=== PATIENT | male | born 1985 | race Caucasian/White ===

== ENCOUNTER 2022-06-13 15:04 | Emergency (ER) | payer MEDICAID, SELFPAY ==
[2022-06-13 15:05] VITALS: BP 126/98; PULSE 85; RESP 18; TEMP 36.8; O2SAT 99; BMI 22.1
--- NOTE | 2022-06-13 15:45 | CT_ITS ---
PROCEDURE INFORMATION: Exam: CT Abdomen And Pelvis Without Contrast Exam date and time: 06/13/2022 3:54 PM Age: 36 years old Clinical indication: Abdominal pain; Flank; Right; Additional info: Abd pain TECHNIQUE: Imaging protocol: Computed tomography of the abdomen and pelvis without contrast. Radiation optimization: All CT scans at this facility use at least one of these dose optimization techniques: automated exposure control; mA and/or kV adjustment per patient size (includes targeted exams where dose is matched to clinical indication); or iterative reconstruction. COMPARISON: No relevant prior studies available. FINDINGS: Liver: Normal. No mass. Gallbladder and bile ducts: Normal. No calcified stones. No ductal dilation. Pancreas: Normal. No ductal dilation. Spleen: Normal. No splenomegaly. Adrenal glands: Normal. No mass. Kidneys and ureters: Normal. No hydronephrosis. Stomach and bowel: Unremarkable. No obstruction. No mucosal thickening. Appendix: No evidence of appendicitis. Intraperitoneal space: Unremarkable. No free air. No significant fluid collection. Vasculature: Unremarkable. No abdominal aortic aneurysm. Lymph nodes: Unremarkable. No enlarged lymph nodes. Urinary bladder: Unremarkable as visualized. Reproductive: Unremarkable as visualized. Bones/joints: Unremarkable. No acute fracture. Soft tissues: Unremarkable. IMPRESSION: No evidence of an acute abnormality.
--- NOTE | 2022-06-13 15:52 | PC.NURSE ---
PT TO CT AT THIS TIME
[2022-06-13 16:06] LABS: Basophils # 0.1 K/mm3 (0-0.2); Eosinophils # 0.2 K/mm3 (0.0-0.4); Eosinophils % 2.2 % (0.1-12.0); Hematocrit 49.4 % (42.0-52.0); Hemoglobin 16.6 g/dL (14.1-18.0); Lymphocytes # 2.1 K/mm3 (0.7-4.5); Lymphocytes % 32.6 % (10-50); Mean Corpuscular HGB Conc 33.6 g/dL (31.8-35.4); Mean Corpuscular Hemoglobin 30.4 pg (27.0-31.2); Mean Corpuscular Volume 90.3 fl (80-94); Mean Platelet Volume 7.9 fl (7.4-10.4); Monocytes # 0.6 K/mm3 (0.1-1.0); Neutrophils # 3.6 K/mm3 (1.8-7.8); Neutrophils % 55.1 % (37.0-80.0); Platelet Count 396 K/mm3 (142-424); Red Blood Count 5.47 M/mm3 (4.60-6.20); Red Cell Distribution Width 12.9 % (11.5-17.5); White Blood Count 6.5 K/mm3 (4.8-10.8)
[2022-06-13 16:07] LABS: Chloride 98 mmol/L (98-107); Potassium 3.9 mmoL/L (3.5-5.1); Sodium 140 mmol/L (136-145)
[2022-06-13 16:09] LABS: Blood Urea Nitrogen 11 mg/dl (9-20)
[2022-06-13 16:10] LABS: Alanine Aminotransferase 39 U/L (12-78); Albumin Level 4.7 g/dl (3.5-5.0); Albumin/Globulin Ratio 1.5 (1.1-1.8); Alkaline Phosphatase 67 U/L (38-126); Anion Gap 12.9 mEq/L (5-15); Aspartate Amino Transferase 36 U/L (17-59); Bilirubin,Total 0.7 mg/dl (0.2-1.3); Calcium 10.2 mg/dl (8.4-10.2); Carbon Dioxide 33 mmol/L (22.0-30.0); Creatinine Clearance Estimated 138 mL/min (50-200); Estimated Glomerular Filt Rate 109 ml/min (>60); GFR (African American) 132 ML/MIN (>60); Globulin 3.1 g/dL (1.3-3.2); Glucose 115 mg/dl (74-100); Total Protein,Serum 7.8 g/dl (6.3-8.2)
[2022-06-13 16:14] LABS: Microscopic, Urine URINE MICROSCOPIC (MICROSCOPIC)
--- NOTE | 2022-06-13 16:25 | PC.NURSE ---
DR. MONIQUE AT BEDSIDE
--- NOTE | 2022-06-13 16:35 | HMH.EDGENADL ---
Discharge Plan Disposition Patient Disposition: Home, Self-Care Condition: Good Referrals Follow up/Referrals: Provider,Referral, MD [Primary Care Provider] - See instructions Activity Restrictions/Add. Instructions Additional Instructions/Restrictions: You are being provided with a list of physicians available for follow-up of your condition. Please call a physician on this list to arrange a follow-up appointment as soon as possible. Follow-up with urology, Dr. Motley, for blood in your urine. Call for appointment [phone] Additional instructions for DENTAL PROBLEMS: See a dentist as soon as possible for further evaluation. Return immediately if you have an uncontrollable fever greater than 102 degrees, difficulty breathing or shortness of breath, persistent vomiting, or inability to swallow. Clinical Impressions Clinical Impression: Abdominal pain, Acute flank pain, Hematuria, Dental caries Instructions Patient Instructions: DI for Acute Abdominal Pain, DI for Hematuria, DI for Tooth Decay, DI for Flank Pain Discharge ED Provider: Bigg Ha General Adult HPI General Chief complaint: Abdominal Pain Stated complaint: stomach pains Time Seen by Provider: 06/13/22 16:27 Mode of Arrival: Ambulatory Limitations: No Limitations Description of Symptoms (Recalled from ER Triage Doc. by RN): PT REPORTS RIGHT SIDED ABDOMINAL PAIN SINCE TUESDAY, REPORTS PAIN INTERMITTENT. SHARP AND STABBING History of Present Illness HPI narrative: Patient states that he has 2 different complaints. Abdominal pain and broken tooth. States that he has intermittent right-sided abdominal pain that has been going on for years, most recently starting Tuesday. Says that his pain also goes to his right flank and he noticed some blood in his urine. Denies fever, vomiting. States that his stool never hardens up and he has been evaluated before with stool samples. This has been going on for years. States he has never had any other evaluation for his abdominal pain. Also states that he bit down on some chicken 2 days ago and broke off a piece of his tooth right mandibular area. No swelling or fever. He does not have a dentist. Reports prior history of substance abuse. Recently on buprenorphine. Related Data Allergies Allergy/AdvReac Type Severity Reaction Status Date / Time hydrocodone Allergy Verified 06/13/22 15:44 naloxone Allergy Verified 06/13/22 15:44 PFSH PFSH Social History Smoking Status: Current every day smoker ROS Obtained: Yes Systems reviewed as appropriate & no additional complaints except as documented Constitutional Constitutional: Denies fever(s), Denies headache(s) and Denies weakness ENT Ears, Nose, Mouth, and Throat: Reports otalgia, Denies headache(s), Denies nasal discharge and Denies sore throat Cardiovascular Cardiovascular: Denies chest pain Respiratory Respiratory: Denies shortness of breath and Denies cough Gastrointestinal Gastrointestingal: Reports abdominal pain; Denies constipation, diarrhea or vomiting Genitourinary Male Genitourinary: Denies difficulty urinating, Reports flank pain and Reports hematuria Musculoskeletal Musculoskeletal: Denies numbness Neurologic Neurologic: Denies headache(s), Denies numbness and Denies weakness Physical Exam General General appearance: alert and in no apparent distress Head Head exam: atraumatic and normocephalic Eye Eye exam: Present normal appearance and EOMI ENT ENT exam: Present mucous membranes moist Expanded ENT Exam Mouth exam: Present tongue normal; Absent lip swelling, tongue elevation or tongue swelling Teeth exam: Present dental caries, fractured tooth # and dental tenderness #; Absent gingival swelling Teeth numbered Image: 1. Fractured and Other (Fracture due to severe dental caries, no signs of infection.) Throat exam: Present normal inspection; Absent muffled voice Neck Neck exam: Present normal inspection
[2022-06-13 16:42] LABS: Lipase 87 U/L (23-300)
[2022-06-13 16:59] LABS: Appearance,Urine CLEAR (Clear); Bilirubin,Urine Negative (Negative); Blood, Urine 3+ (Negative); Color,Urine YELLOW (Yellow); Glucose,Urine (UA) Negative (Negative); Ketones,Urine Negative (Negative); Leukocyte Esterase,Urine Negative (Negative); Nitrate,Urine Negative (Negative); Protein,Urine Negative (Negative); Specific Gravity, Urine >= 1.030 (1.005-1.030); Urobilinogen,Urine 0.2 EU/dl (0.2)
--- NOTE | 2022-06-13 17:03 | PC.NURSE ---
PT REQUESTING SOMETHING TO EAT, OK'D PER MD DIETARY NOTIFIED
[2022-06-13 17:11] LABS: Amphetamine/Metha Screen,Urine Negative ng/ml (<1000); Barbiturates Screen,Urine Negative ng/ml (<200)
[2022-06-13 17:12] LABS: Benzodiazepines Screen,Urine Negative ng/ml (<200)
[2022-06-13 17:13] LABS: Cannabinoid Screen,Urine Positive ng/ml (<50); Cocaine Screen,Urine Negative ng/ml (<300)
[2022-06-13 17:14] LABS: Methadone Screen,Urine Negative ng/ml (<300); Squamous Epithelial Cell,Urine Occasional #/hpf (0-5); WBC,Urine Occasional #/hpf (0-3)
[2022-06-13 17:15] LABS: Opiate Screen,Urine Negative ng/ml (<300); Phencyclidine Screen,Urine Negative ng/ml (<25)
[2022-06-13 17:47] VITALS: BP 135/97; PULSE 67; RESP 18; TEMP 36.7; O2SAT 100
== END 2022-06-13 17:49 | disposition home or self-care (01) ==
PROVIDERS: Emergency Provider Emergency Medicine
DX: R10.31 Right lower quadrant pain (principal); H92.09 Otalgia, unspecified ear; S02.5XXA Fracture of tooth (traumatic), initial encounter for closed fracture; F17.210 Nicotine dependence, cigarettes, uncomplicated; Z88.5 Allergy status to narcotic agent; Z88.6 Allergy status to analgesic agent; Z88.8 Allergy status to other drugs, medicaments and biological substances
CPT/HCPCS: 74176; 80053; 80305; 81001; 83690; 85025; 99285

== ENCOUNTER 2022-09-07 01:33 | Emergency (ER) | payer MEDICAID, SELFPAY ==
--- NOTE | 2022-09-07 01:29 | ECG_ITS ---
APPROVED REPORT Exam: Resting ECG HR:93 bpm ECG Measurements Heart Rate 93 AXES MA 147 P 72 QRSd 102 QRS 68 QT 353 T 70 QTc 404 Conclusion SINUS RHYTHM NORMAL ECG UNCONFIRMED REPORT Electronically signed by : Jack Landis MD 09/07/2022 21:16:40
[2022-09-07 01:33] VITALS: BP 124/85; PULSE 89; RESP 16; TEMP 36.9; O2SAT 99; BMI 17.1
--- NOTE | 2022-09-07 01:39 | CT_ITS ---
PROCEDURE INFORMATION: Exam: CT Head Without Contrast Exam date and time: 09/07/2022 1:51 AM Age: 36 years old Clinical indication: Altered mental status/memory loss; Additional info: Overdose TECHNIQUE: Imaging protocol: Computed tomography of the head without contrast. Radiation optimization: All CT scans at this facility use at least one of these dose optimization techniques: automated exposure control; mA and/or kV adjustment per patient size (includes targeted exams where dose is matched to clinical indication); or iterative reconstruction. Other protocol: This patient has received [address] and 0 known cardiac nuclear medicine studies in the 12 months prior to the current study. COMPARISON: No relevant prior studies available. FINDINGS: Brain: No acute intracranial hemorrhage. No intra- or extra-axial fluid collection. No mass effect or midline shift. No loss of rudd-white matter differentiation. Calcifications in the basal ganglia, likely physiologic. Cerebral ventricles: No hydrocephalus. Paranasal sinuses: Trace layering fluid in the left maxillary sinus. Paranasal sinuses are otherwise clear. Mastoid air cells: Visualized mastoid air cells are well aerated. Bones/joints: No acute calvarial or skull base fracture. Soft tissues: Unremarkable. IMPRESSION: 1. No evidence of acute intracranial abnormality. 2. Trace layering fluid in the left maxillary sinus. Findings may represent sinusitis or blood products in the setting of trauma.
[2022-09-07 01:53] LABS: Basophils # 0.1 K/mm3 (0-0.2); Basophils % 1.8 % (0.1-2.0); Eosinophils # 0.1 K/mm3 (0.0-0.4); Eosinophils % 2.3 % (0.1-12.0); Hematocrit 47.6 % (42.0-52.0); Hemoglobin 16.2 g/dL (14.1-18.0); Lymphocytes % 47.9 % (10-50); Mean Corpuscular Hemoglobin 30.1 pg (27.0-31.2); Mean Corpuscular Volume 88.6 fl (80-94); Mean Platelet Volume 7.4 fl (7.4-10.4); Monocytes # 0.5 K/mm3 (0.1-1.0); Monocytes % 7.7 % (1.7-9.3); Neutrophils # 2.6 K/mm3 (1.8-7.8); Neutrophils % 40.3 % (37.0-80.0); Platelet Count 328 K/mm3 (142-424); Red Blood Count 5.37 M/mm3 (4.60-6.20); Red Cell Distribution Width 12.9 % (11.5-17.5); White Blood Count 6.4 K/mm3 (4.8-10.8)
[2022-09-07 01:59] LABS: Ethyl Alcohol 178 mg/dl (0-10)
[2022-09-07 02:00] LABS: Alanine Aminotransferase 25 U/L (12-78); Albumin Level 4.5 g/dl (3.5-5.0); Albumin/Globulin Ratio 1.5 (1.1-1.8); Alkaline Phosphatase 62 U/L (38-126); Anion Gap 10.7 mEq/L (5-15); Aspartate Amino Transferase 32 U/L (17-59); Bilirubin,Total 0.4 mg/dl (0.2-1.3); Blood Urea Nitrogen 11 mg/dl (9-20); Calcium 9.2 mg/dl (8.4-10.2); Carbon Dioxide 30 mmol/L (22.0-30.0); Chloride 107 mmol/L (98-107); Creatinine Clearance Estimated 85 mL/min (50-200); Estimated Glomerular Filt Rate 85 ml/min (>60); GFR (African American) 102 ML/MIN (>60); Glucose 86 mg/dl (74-100); Potassium 3.7 mmoL/L (3.5-5.1); Sodium 144 mmol/L (136-145); Total Protein,Serum 7.5 g/dl (6.3-8.2)
[2022-09-07 02:01] LABS: Acetaminophen < 10 ug/ml (10-30); Salicylate < 1.0 mg/dL (2.0-20.0)
[2022-09-07 02:15] VITALS: BP 0/0; PULSE 0; RESP 0; TEMP -17.7; TEMP 0; O2SAT 0
--- NOTE | 2022-09-07 02:16 | PC.NURSE ---
pt wanted to leave AMA and mother stated she would sign for him
--- NOTE | 2022-09-07 02:17 | HMH.EDOD ---
Discharge Plan Disposition Patient Disposition: Left Against Medical Advice Referrals Follow up/Referrals: Provider,Referral, MD [Primary Care Provider] - See instructions Clinical Impressions Clinical Impression: Drug overdose, Alcohol intoxication Instructions Patient Instructions: DI for Drug Overdose in Adults Discharge ED Provider: Charles (ED)Rasta Overdose HPI General Chief Complaint: Overdose Stated Complaint: ALTERED MENTAL Time Seen by Provider: 09/07/22 01:45 Mode of Arrival: EMS Source of Information: Patient, Parent(s), EMS and Medical Record Limitations: No Limitations Description of Symptoms (Recalled from ER Triage Doc. by RN): EMS called out for an unresponsive pt. upon ens arrival pt was awake and alert. pt states is doesnt remeber again since 8pm and states he have been drinking History of Present Illness HPI Narrative: pt with use of suboxone and etoh and nasal opiate - ems reports awake but confused at scene - no narcan given - pt poor historian complaint: accidental overdose Onset (ago): hour(s) Timing confirmed by: family member and other (ems ) Context: Accidental Overdose: wanted to get high Treatments Prior to Arrival: IV fluids Related Data Allergies Allergy/AdvReac Type Severity Reaction Status Date / Time hydrocodone Allergy Verified 06/13/22 15:44 naloxone Allergy Verified 06/13/22 15:44 [facility] Disclaimer: The information contained in this section may have been updated after the patient was seen, as this information can be updated by other users. Social History Smoking Status: Current every day smoker alcohol intake: current current occupational status: unemployed Travel in the last 8 weeks: None ROS Obtained: Yes unobtainable due to mental status Physical Exam General General appearance: alert Head Head exam: normocephalic Eye Eye exam: Present PERRL and EOMI ENT ENT exam: Present mucous membranes dry Neck Neck exam: Present trachea midline Respiratory Respiratory exam: Present normal lung sounds bilaterally; Absent respiratory distress Cardiovascular Cardiovascular exam: Present regular rate Abdominal Exam Abdominal exam: Present soft Extremities Exam Extremities exam: Absent calf tenderness Neurological Exam Neurological exam: Present alert and CN II-XII intact; Absent oriented X3 or motor sensory deficit Skin Skin exam: Absent rash Medical Decision Making Medical Records Medical records reviewed: Yes I reviewed the patient's medical records. Romie Inquiry Pt receiving controlled substance: No Vital Signs: 09/07/22 01:33 09/07/22 02:15 Temperature 98.4 F 0 F L Temperature Source Oral Pulse Rate 0 L Pulse Rate [Right] 89 Respiratory Rate 16 0 L Blood Pressure 0/0 L Blood Pressure [Right Arm] 124/85 Blood Pressure Mean [Right Arm] 98 02 Sat by Pulse Oximetry 99 Lab Data Lab results reviewed: Yes I reviewed the patient's lab results. Lab Results 09/07/22 01:44: WBC 6.4, RBC 5.37, Hgb 16.2, Hct 47.6, MCV 88.6, MCH 30.1, MCHC 34.0, RDW 12.9, Plt Count 328, MPV 7.4, Neut % (Auto) 40.3, Lymph % (Auto) 47.9, [place] % (Auto) 7.7, Eos % (Auto) 2.3, Baso % (Auto) 1.8, Neut # (Auto) 2.6, Lymph # (Auto) 3.0, [place] # (Auto) 0.5, Eos # (Auto) 0.1, Baso # (Auto) 0.1 09/07/22 01:44: Sodium 144, Potassium 3.7, Chloride 107, Carbon Dioxide 30, Anion Gap 10.7, BUN 11, Creatinine 1.00, Estimated Creat Clear 85, Estimated GFR 85, Est GFR ( Amer) 102, Glucose 86, Calcium 9.2, Total Bilirubin 0.4, AST 32, ALT 25, Alkaline Phosphatase 62, Total Protein 7.5, Albumin 4.5, Globulin 3.0, Albumin/Globulin Ratio 1.5, Salicylates < 1.0 L, Acetaminophen < 10 L 09/07/22 01:44: Plasma/Serum Alcohol 178 H Result diagrams: 09/07/22 01:44 09/07/22 01:44 Orders (Tests/Meds): ED MEDICATIONS Generic Name Dose Route Start Last Admin Trade Name Freq PRN Reason Stop Dose Admin Sodium Chloride 1,000 mls @ 999 ml
== END 2022-09-07 02:25 | disposition left against medical advice (07) ==
PROVIDERS: Emergency Provider Emergency Medicine
DX: T50.901A Poisoning by unspecified drugs, medicaments and biological substances, accidental (unintentional), initial encounter (principal); R41.82 Altered mental status, unspecified; F10.99 Alcohol use, unspecified with unspecified alcohol-induced disorder; X58.XXXA Exposure to other specified factors, initial encounter; F17.210 Nicotine dependence, cigarettes, uncomplicated
CPT/HCPCS: 70450; 80053; 80329; 85025; 93005; 96360; 99285

== ENCOUNTER 2023-12-19 19:34 | Emergency (ER) | payer MEDICAID, SELFPAY ==
[2023-12-19 19:34] VITALS: BP 118/84; PULSE 70; RESP 16; TEMP 36.9; O2SAT 97; BMI 23.7
--- NOTE | 2023-12-19 20:14 | ED_ITS ---
Discharge Plan Disposition Patient Disposition: Home, Self-Care Prescriptions Prescriptions: New sulfamethoxazole-trimethoprim [Bactrim DS] 800-160 mg tablet 1 tab PO BID 7 Days Qty: 14 0RF cephalexin 500 mg capsule 500 mg PO QID 7 Days Qty: 28 0RF Referrals Follow up/Referrals: Provider,Referral, [Primary Care Provider] - See instructions Activity Restrictions/Add. Instructions Additional Instructions/Restrictions: You have very small abscesses on tips of 2 finger with mild surrounding cellulitis abscesses were drained using a needle incision and antibiotics were prescribed for the redness/cellulitis of your finger. Please return with any significant worsening of your symptoms and complete your course of antibiotics even if he had complete resolution of your pain. Clinical Impressions Clinical Impression: Cellulitis of finger, Abscess of finger Instructions Patient Instructions: DI for Skin Abscess Discharge ED Provider: Hernando Humphrey General Adult HPI General Chief complaint: Skin/Abscess/Foreign Body Stated complaint: possible infection in fingers Time Seen by Provider: 12/19/23 20:04 Mode of Arrival: Ambulatory Source of Information: Patient Limitations: No Limitations Description of Symptoms (Recalled from ER Triage Doc. by RN): finger issues x1 week poss abcess, rash area in groin and butt, prostate gets hard when he pees History of Present Illness HPI narrative: Patient is a 38-year-old male presented with multiple complaints. Primarily he has some small pustules/abscesses on 2 of his fingers with some surrounding erythema. He did mention in triage a rash in his groin and buttock area and some issues with urination however when asked if he like me to evaluate this things he said he just wanted to be evaluated for his fingers and that is what brought him to the emergency department. No fevers chills etc. Related Data Previous Rx's Medication Instructions Recorded cephalexin 500 mg capsule 500 mg PO QID 7 days #28 caps 12/19/23 sulfamethoxazole 800 1 tab PO BID 7 days #14 tabs 12/19/23 mg-trimethoprim 160 mg tablet (Bactrim DS) Allergies Allergy/AdvReac Type Severity Reaction Status Date / Time hydrocodone Allergy Verified 06/13/22 15:44 naloxone Allergy Verified 06/13/22 15:44 [facility] Disclaimer: The information contained in this section may have been updated after the patient was seen, as this information can be updated by other users. Social History (Updated 09/07/22 @ 02:24 by Rasta Soto (ED)MD) Smoking Status: Current every day smoker alcohol intake: current current occupational status: unemployed Travel in the last 8 weeks: None ROS Obtained: Yes All systems reviewed & no additional complaints except as documented Physical Exam General General appearance: alert Respiratory Respiratory exam: Present normal lung sounds bilaterally Cardiovascular Cardiovascular exam: Present regular rate Extremities Exam Extremities exam: Present other (Very small 0.5 cm abscesses on the distal aspect of the volar fat pad of the third digit on the right hand and index finger of the left hand with some mild surrounding cellulitis) Neurological Exam Neurological exam: Present alert and oriented X3 Medical Decision Making Romie Inquiry Pt receiving controlled substance: No Vital Signs: 12/19/23 19:34 Temperature 98.5 F Temperature Source Oral Pulse Rate [Right Radial] 70 Respiratory Rate 16 Blood Pressure [Right Arm] 118/84 Blood Pressure Mean [Right Arm] 95 02 Sat by Pulse Oximetry 97 Oxygen Delivery Method Room Air Orders (Tests/Meds): ED MEDICATIONS Generic Name Dose Route Start Last Admin Trade Name Freq PRN Reason Stop Dose Admin Cephalexin HCl 500 mg 12/19/23 20:11 Cephalexin 500mg Capsule PO 12/19/23 20:12 ONCE ONE Trimethoprim/Sulfamethoxazole 1 each 12/19/23 20:11 Sulfa/Trimethoprim 1 Tablet PO 12/19/23 20:12 ONCE ONE Medical Decision Narrative: 38-year-old male presented with very mild erythema/cellulitis of 2 fingers with small pustules/abscesses. There is small enough to I discussed with him possible treatment just antibiotics alone but he wanted them to be drained incision and drainage were performed with a needle small amount of purulent debris was removed from each abscess antibiotics were prescribed for the celluli tis. Regarding the other reason that he came to the emergency department he stated he did not want to be evaluated for those and he will follow-up with primary care doctor. Procedures Abscess I/D Site: upper extremity Side (if applicable): left (2 abscesses were drained 1 on the distal aspect of the third finger right hand 1 on the distal aspect of the left index finger) and right Technique: needle aspiration Amount of fluid expressed (mL): 1 (1 cc with each side) Irrigation: No Packing used?: none Critical Care Critical Care Time Critical Care Time: No
[2023-12-19] MEDS: SULFA/TRIMETHOPRIM 1 TABLET 1 EACH PO (20:15)
[2023-12-19] MEDS: cephALEXin 500MG CAPSULE 500 MG PO (20:15)
[2023-12-19 20:20] VITALS: BP 160/70; PULSE 70; RESP 20; TEMP 36.7; O2SAT 97
== END 2023-12-19 20:21 | disposition home or self-care (01) ==
PROVIDERS: Emergency Provider Student in an Organized Health Care Education/Training Program
DX: L02.511 Cutaneous abscess of right hand (principal); L02.512 Cutaneous abscess of left hand; L03.011 Cellulitis of right finger; L03.012 Cellulitis of left finger; F17.210 Nicotine dependence, cigarettes, uncomplicated
CPT/HCPCS: 10060; 99283

== ENCOUNTER 2024-01-06 20:55 | Emergency (ER) | payer MEDICAID, SELFPAY ==
[2024-01-06 21:04] VITALS: BP 139/111; PULSE 81; RESP 16; TEMP 36.6; O2SAT 99; BMI 25.1
--- NOTE | 2024-01-06 21:19 | HMH.EDGENADL ---
Discharge Plan Disposition Patient Disposition: Home, Self-Care Prescriptions Prescriptions: No Action sulfamethoxazole-trimethoprim [Bactrim DS] 800-160 mg tablet 1 tab PO BID 7 Days Qty: 14 0RF cephalexin 500 mg capsule 500 mg PO QID 7 Days Qty: 28 0RF Activity Restrictions/Add. Instructions Additional Instructions/Restrictions: As discussed the drugs of abuse screen is that we have available in hospital test for metabolites of particular substances and with regards to marijuana or THC the presence of a metabolite in the drug screen does not indicate the time of ingestion. Specifically metabolites can remain in your system for an extended period of time sometimes extended beyond several weeks. There is no immediately available test that we have an hospitalist to determine exactly when your last use was. Therefore no emergent medical condition was identified today and you may follow-up with your attorneys in the court system regarding your drug testing. Clinical Impressions Clinical Impression: Encounter for medical screening examination Discharge ED Provider: Hernando Humphrey General Adult HPI General Chief complaint: Recheck/Abnormal Lab/Rx Stated complaint: Recheck-wants drug test Time Seen by Provider: 01/06/24 21:02 Mode of Arrival: Ambulatory Source of Information: Patient Limitations: No Limitations Description of Symptoms (Recalled from ER Triage Doc. 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 pt states he has not used marijauna since November 15, 2023. pt states he then bought a drug test from [employer] today that also came back +THC. pt is here requesting a drug test. pt states he does not understand how they could be positive. pt does report he was an everyday smoker up until 11/14. History of Present Illness HPI narrative: Patient is a 38-year-old male presenting today requesting a test to determine exactly when his last use of marijuana was. States that he is currently being evaluated by the court systems and that his trust and estates attorney has been asking for drug screens to prove that he is no longer doing marijuana. He states that he has not been using marijuana since October of this year. However he has been doing some home drug test and marijuana continues to be positive in his system. He asks why. He specifically asks if we could do a test to determine the exact concentration from his blood or some type of qualitative assessment in terms of when he last used to prove this to the court systems. He has no signs or symptoms of any emergent medical condition at the moment and denies any other concerns. Related Data Previous Rx's Medication Instructions Recorded cephalexin 500 mg capsule 500 mg PO QID 7 days #28 caps 12/19/23 sulfamethoxazole 800 1 tab PO BID 7 days #14 tabs 12/19/23 mg-trimethoprim 160 mg tablet (Bactrim DS) Allergies Allergy/AdvReac Type Severity Reaction Status Date / Time hydrocodone Allergy Verified 01/06/24 21:08 naloxone Allergy Verified 01/06/24 21:[address] [facility] Disclaimer: The information contained in this section may have been updated after the patient was seen, as this information can be updated by other users. Social History (Updated 09/07/22 @ 02:24 by Rasta Soto (ED)MD) Smoking Status: Current every day smoker alcohol intake: current current occupational status: unemployed Travel in the last 8 weeks: None ROS Obtained: Yes All systems reviewed & no additional complaints except as documented Physical Exam General General appearance: alert Respiratory Respiratory exam: Present normal lung sounds bilaterally Cardiovascular Cardiovascular exam: Present regular rate Neurological Exam Neurological exam: Present alert and oriented X3 Medical Decision Making Romie Inquiry Pt receiving controlled substance: No Vital Signs: 01/06/24 21:04 Temperature 97.9 F Temperature Source Oral Pulse Rate [Left] 81 Respiratory Rate 16 Blood Pressure [Right Arm] 139/111 H Blood Pressure Mean [Right Arm] 120 Blood Pressure Source [Right Arm] Automatic Cuff Blood Pressure Position [Right Arm] Sitting 02 Sat by Pulse Oximetry 99 Oxygen Delivery Method Room Air Medical Decision Narrative: I had an extensive discussion with the patient regarding the limitations of the drugs of abuse screen that we have immediately available in the emergency department. The presence of a metabolite I discussed with him does not imply the exact time of ingestion. This in fact is the main limitation of this being used in emergency department in an acute setting as we often times do not attribute or prove causation from symptoms with regards to a positive metabolite the same fact can be true the patient in this particular legal situation where the presence of his metabolite does not imply the exact time of his last use. Marijuana or THC and its metabolites certainly can be present in his system for an extended period of time sometimes lasting many weeks. Therefore I told him that that has has insert limitations from a clinical standpoint certainly nothing we need to work up further in the emergency department but that the legal system is understand this as well. I cannot prove or disprove when this patient did in fact use marijuana last. I have encouraged him to continue to be abstinent if that is what he is working towards in his life and to continue his normal follow-up with the legal system. No test was indicated emergently to look into this further. Critical Care Critical Care Time Critical Care Time: No
[2024-01-06 21:22] VITALS: BP 139/111; PULSE 81; RESP 16; TEMP 36.6; O2SAT 99
== END 2024-01-06 21:24 | disposition home or self-care (01) ==
PROVIDERS: Emergency Provider Student in an Organized Health Care Education/Training Program
DX: Z00.8 Encounter for other general examination (principal)
CPT/HCPCS: 99281

== ENCOUNTER 2024-02-28 09:25 | Emergency (ER) | payer MEDICAID, SELFPAY ==
[2024-02-28 09:26] VITALS: BP 138/98; PULSE 87; RESP 18; TEMP 37; O2SAT 99; BMI 24.4
--- NOTE | 2024-02-28 09:32 | PC.NURSE ---
DR BRAVO AT BEDSIDE
[2024-02-28 09:40] VITALS: BP 138/98; PULSE 87; RESP 18; TEMP 37; O2SAT 99
--- NOTE | 2024-02-28 10:09 | ED_ITS ---
Discharge Plan Disposition Patient Disposition: Home, Self-Care Condition: Good Prescriptions Prescriptions: No Action sulfamethoxazole-trimethoprim [Bactrim DS] 800-160 mg tablet 1 tab PO BID 7 Days Qty: 14 0RF cephalexin 500 mg capsule 500 mg PO QID 7 Days Qty: 28 0RF Referrals Follow up/Referrals: Selena López MD [Referring] - See instructions Provider,MD Nathaniel [Primary Care Provider] - See instructions Jack Hernandez MD [Staff Physician] - See instructions Activity Restrictions/Add. Instructions Additional Instructions/Restrictions: You were evaluated in the emergency department today. At this time, you are not experiencing anything life-threatening or immediately harmful to you. Please follow-up outpatient for further evaluation and management of your chronic skin tag and for further evaluation and management of your outpatient medications. Clinical Impressions Clinical Impression: Encounter for medical assessment, Skin tag Instructions Patient Instructions: [employer] Print Language Print Language: Uzbek Discharge ED Provider: Olga Nava General Adult HPI General Chief complaint: Skin/Abscess/Foreign Body Stated complaint: skin tag causing pain Time Seen by Provider: 02/28/24 09:30 Mode of Arrival: Ambulatory Source of Information: Patient Limitations: No Limitations Description of Symptoms (Recalled from ER Triage Doc. by RN): PT REPORTS SKIN TAG UNDER LEFT ARM FOR SEVERAL YEARS, REPORTS MORE UNCOMFORTABLE IN THE LAST WEEK. PT ALSO WANTS DRUG SCREEN AFTER BEING DISCHARGED FROM NURSING HOME A FEW DAYS AGO, WANTS TO KNOW IF HE WAS RECEIVING HIS CORRECT MEDICINES. History of Present Illness HPI narrative: This patient is a 38-year-old male with a history of substance abuse and alcohol abuse presenting to the emergency department for evaluation with concern for skin tag and he wants a piss test. Patient states that he was told he was [facility] [place] [facility] was [place], and he wants to make sure that he was getting the right dose. He was released 2 days ago. He wants his urine checked to check the levels of Suboxone in his system. He also has a skin tag has been under his right arm for several years now and it has been annoying him this last week. He is asking if we can remove it. No other concerns noted. Related Data Previous Rx's ?Medication ?Instructions ?Recorded cephalexin 500 mg capsule 500 mg PO QID 7 days #28 caps 12/19/23 sulfamethoxazole 800 1 tab PO BID 7 days #14 tabs 12/19/23 mg-trimethoprim 160 mg tablet (Bactrim DS) Allergies Allergy/AdvReac Type Severity Reaction Status Date / Time hydrocodone Allergy Verified 01/06/24 21:08 naloxone Allergy Verified 01/06/24 21:08 [facility] Disclaimer: The information contained in this section may have been updated after the patient was seen, as this information can be updated by other users. Social History Smoking Status: Current every day smoker alcohol intake: current current occupational status: unemployed Travel in the last 8 weeks: None ROS Obtained: Yes All systems reviewed & no additional complaints except as documented Physical Exam General General appearance: alert and in no apparent distress Head Head exam: atraumatic and normocephalic Eye Eye exam: Present normal appearance, PERRL and EOMI ENT ENT exam: Present normal exam, normal oropharynx, mucous membranes moist and normal external ear exam Neck Neck exam: Present normal inspection, full ROM and trachea midline; Absent tenderness Chest Chest inspection: Present normal inspection and symmetric chest wall rise; Absent tenderness Respiratory Respiratory exam: Present normal lung sounds bilaterally; Absent respiratory distress, wheezes, stridor or accessory muscle use Cardiovascular Cardiovascular exam: Present regular rate and normal rhythm Abdominal Exam Abdominal exam: Present soft; Absent distention, tenderness or guarding Extremities Exam Extremities exam: Present normal inspection, full ROM and normal capillary refill; Absent tenderness or edema Back Exam Back exam: Present normal inspection and full ROM; Absent tenderness Neurological Exam Neurological exam: Present alert, oriented X3, CN II-XII intact and normal gait; Absent motor sensory deficit Psychiatric Psychiatric exam: Present normal affect and normal mood Skin Skin exam: Present warm, dry and other ([facility] skin tag in the right posterior axillary region with no surrounding erythema, warmth, induration, or other concerns) Medical Decision Making Medical Records Medical records reviewed: Yes I reviewed the patient's medical records. Romie Inquiry Pt receiving controlled substance: No Vital Signs: 02/28/24 09:26 02/28/24 09:40 Temperature 98.6 F 98.6 F Temperature Source Oral Oral Pulse Rate 87 Pulse Rate [Radial] 87 Respiratory Rate 18 18 Blood Pressure 138/98 H Blood Pressure [Left Arm] 138/98 H Blood Pressure Mean [Left Arm] 111 Blood Pressure Source Automatic Cuff Blood Pressure Source [Left Arm] Automatic Cuff Blood Pressure Position [Left Arm] Sitting 02 Sat by Pulse Oximetry 99 Oxygen Delivery Method Room Air Room Air Lab Data Lab results reviewed: Yes I reviewed the patient's lab results. Medical Decision Narrative: In summary, this patient is a 38-year-old male presenting to the Emergency Department for evaluation of skin tag and wants his Suboxone levels checked. At this point, medical screening exam was performed and the patient has a small skin tag this been there for a very long time and does not appear to be infected acutely on exam. He also wants his urine checked to check his Suboxone levels, but I do not feel that this is inappropriate use of resources here in the emergency department. Medical screening exam was performed and I feel that the patient does not have an acute life-threatening illness and does not require immediate medical attention for these chronic issues. Advised he can follow-up outpatient with primary care for further evaluation and management and also given information for dermatology should he wish to have the skin tag evaluated. There is no indication for urgent intervention based upon exam. Patient became agitated and stated that he is not paying for this visit if we are not doing anything, but I explained to him that her job is to make sure that he does not have any acute life-threatening illness or injury that requires immediate medical attention. Patient was given strict return precautions and discharged after all questions were answered. Critical Care Critical Care Time Critical Care Time: No
== END 2024-02-28 09:40 | disposition home or self-care (01) ==
PROVIDERS: Emergency Provider Emergency Medicine
DX: Z00.8 Encounter for other general examination (principal)
CPT/HCPCS: 99281

== ENCOUNTER 2024-12-07 16:19 | Emergency (ER) | payer MEDICAID, SELFPAY ==
[2024-12-07 16:26] VITALS: BP 128/92; PULSE 83; RESP 20; TEMP 37.1; O2SAT 97; BMI 26.4
--- NOTE | 2024-12-07 16:45 | ED_ITS ---
Discharge Plan Disposition Patient Disposition: Left Against Medical Advice Condition: Good Prescriptions Prescriptions: New sulfamethoxazole-trimethoprim [Bactrim DS] 800-160 mg tablet 1 tab PO BID 14 Days Qty: 28 0RF No Action sulfamethoxazole-trimethoprim [Bactrim DS] 800-160 mg tablet 1 tab PO BID 7 Days Qty: 14 0RF cephalexin 500 mg capsule 500 mg PO QID 7 Days Qty: 28 0RF Referrals Follow up/Referrals: Provider,Referral, MD [Primary Care Provider] - See instructions Activity Restrictions/Add. Instructions Additional Instructions/Restrictions: You were evaluated in the emergency department today. Poison control recommended CT scan of your leg and admission for 24 hours of monitoring and IV antibiotics. They were concerned that she could need surgery if your leg worsens or if you have a significant amount of retained material on CT scan. You are choosing to leave AGAINST MEDICAL ADVICE without the CT scan or being admitted as they recommended. This can lead to worsening infection and inflammation, sepsis, loss of your leg, and even . Please return to the emergency department right away if you change your mind or if your symptoms worsen. 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 It is very important that you follow-up right away for reassessment, as this is very serious Clinical Impressions Clinical Impression: Toxic effect of adhesive stick material, Cellulitis, Puncture wound Stand Alone Forms Stand Alone Forms: Work/School Release Instructions Patient Instructions: DI for Cellulitis -- Adult, DI for Puncture Wound Print Language Print Language: Panamanian Discharge ED Provider: Olga Nava General Adult HPI General Chief complaint: Skin/Abscess/Foreign Body Stated complaint: AO 12/06/24 1700 ran piece of metal in left leg Time Seen by Provider: 12/07/24 16:24 Mode of Arrival: Ambulatory Source of Information: Patient Description of Symptoms (Recalled from ER Triage Doc. by RN): Patient presents to ED with left inner thigh pain. Patient states he was using a chalk gun with glue for a gutter and he fell on the gun and piece of metal from the gun went into his left inner thigh. Redness and slight swelling present to area. Patient reports last Tdap was wei. 2 years ago. History of Present Illness HPI narrative: This patient is a 39 year old male with history of substance and alcohol use presenting to the ED for evaluation with concern for a puncture wound to the L thigh. He was john yesterday and using a sealant called Quad OSI (made with xylene) when he tripped, jabbing a sharp metal roya on his caulking gun into his L thigh. This happened yesterday around 5pm. He did not seek evaluation until today when his thigh became very red at the site. He has localized swelling and pain, worse with walking. No numbness, tingling, or other concerns. He is still able to bear weight. Thinks his Tdap was a few years ago. Related Data Previous Rx's ?Medication ?Instructions ?Recorded cephalexin 500 mg capsule 500 mg PO QID 7 days #28 caps 12/19/23 sulfamethoxazole 800 1 tab PO BID 7 days #14 tabs 12/19/23 mg-trimethoprim 160 mg tablet (Bactrim DS) sulfamethoxazole 800 1 tab PO BID 14 days #28 tabs 12/07/24 mg-trimethoprim 160 mg tablet (Bactrim DS) Allergies Allergy/AdvReac Type Severity Reaction Status Date / Time hydrocodone Allergy Verified 01/06/24 21:08 naloxone Allergy Verified 01/06/24 21:08 [facility] Disclaimer: The information contained in this section may have been updated after the patient was seen, as this information can be updated by other users. Social History Smoking Status: Current every day smoker alcohol intake: current current occupational status: unemployed Travel in the last 8 weeks?: None Have you lived/traveled outside [place] in past 30 days?: No Contact w/someone who lives/traveled outside [place] past 30 days?: No Exposure to someone with infectious disease in past 14 days?: No Do you have a fever (greater than 100.4 F or 38 C)?: No Have you tested positive for COVID-19?: No Exposed to someone with COVID-19 in past 14 days?: No Do you have a sore throat?: No Do you have a cough?: No Do you have any weakness?: No Do you have any diarrhea?: No Are you experiencing any unusual bleeding?: No Do you have any muscle aches/pain?: No Do you have any abdominal pain?: No Are you experiencing loss of taste or smell?: No ROS Obtained: Yes All systems reviewed & no additional complaints except as documented Physical Exam General General appearance: alert and in no apparent distress Head Head exam: atraumatic and normocephalic Eye Eye exam: Present normal appearance, PERRL and EOMI ENT ENT exam: Present normal exam, normal oropharynx, mucous membranes moist and normal external ear exam Neck Neck exam: Present normal inspection, full ROM and trachea midline; Absent tenderness Chest Chest inspection: Present normal inspection and symmetric chest wall rise; Absent tenderness Respiratory Respiratory exam: Present normal lung sounds bilaterally; Absent respiratory distress, wheezes, stridor or accessory muscle use Cardiovascular Cardiovascular exam: Present regular rate and normal rhythm Abdominal Exam Abdominal exam: Present soft; Absent distention, tenderness or guarding Extremities Exam Extremities exam: Present full ROM, tenderness and normal capillary refill Expanded Lower Extremity Exam Left: Leg image: 2 1. subcentimeter puncture wound 2. Localized redness, warmth, TTP without palpable induration, no fluctuance, no pus expressed. No blisters, bullae, or sloughing Comment: neurovascularly intact distally Back Exam Back exam: Present normal inspection and full ROM; Absent tenderness Neurological Exam Neurological exam: Present alert, oriented X3, CN II-XII intact and normal gait; Absent motor sensory deficit Psychiatric Psychiatric exam: Present normal affect and normal mood Skin Skin exam: Present warm and dry Medical Decision Making Medical Records Medical records reviewed: Yes I reviewed the patient's medical records. Screening: Per [place]PSTF and CDC recommendations, given the prevalence of disease in our region, it is our hospital?s policy to screen for HIV and viral Hepatitis for all patients aged 18 and over and those with ongoing risk factors. Romie Inquiry Pt receiving controlled substance: No Vital Signs: 12/07/24 16:26 Temperature 98.7 F Temperature Source Oral Pulse Rate [Right Brachial] 83 Respiratory Rate 20 Blood Pressure [Right Arm] 128/92 H Blood Pressure Mean [Right Arm] 104 Blood Pressure Source [Right Arm] Automatic Cuff Blood Pressure Position [Right Arm] Supine 02 Sat by Pulse Oximetry 97 Oxygen Delivery Method Room Air Lab Data Lab results reviewed: Yes I reviewed the patient's lab results. Orders (Tests/Meds): ED MEDICATIONS Discontinued Medications Generic Name Dose Route Start Last Admin Trade Name Freq PRN Reason Stop Dose Admin Tetanus/Reduced Diphtheria/Acell Pertussis 0.5 ml 12/07/24 16:38 12/07/24 16:48 Tet/Diphth/Pert-Adult 0.5ml Syringe IM 12/07/24 16:39 0.5 ml .ONCE ONE Administration Trimethoprim/Sulfamethoxazole 1 each 12/07/24 16:38 12/07/24 16:48 Sulfa/Trimethoprim 1 Tablet PO 12/07/24 16:39 1 each ONCE ONE Administration Medical Decision Narrative: In summary, this patient is a 39 year old male presenting to the Emergency Department for evaluation of redness, pain, and swelling to the L thigh after a puncture wound with a calk gun that had Quad OSI sealant (xylene) on it. Differential diagnoses considered include but are not limited to caustic material exposure, cellulitis, puncture wound, retained foreign body. Ruling out the most morbid conditions drove assessment. It should be noted patient's history includes substance abuse which may or may not be at goal therapy. This complicates all aspects of care by increasing patient's risk for morbidity. I reviewed patient's past medical records and noted previous evaluations in the emergency department for various complaints. On exam, the patient has redness, warmth, and tenderness localized to the area surrounding his puncture wound. He is neurovascularly intact with no blistering, bullae, or skin breakdown. I called and had an interactive discussion with Dr. Tijerina and the Poison Control [facility] who recommended CT scan of the leg to evaluate for retained foreign material, admission to the hospital for 24 hours of IV antibiotics and monitoring, and possible surgical consultation if things get worse or if he does have significant amount of retained material. I discussed this with the patient at length, however he states that he is made it this far as that he thinks he will be fine to go home. He notes he lives just down the road and will come back if he gets worse. I advised him that leaving AGAINST MEDICAL ADVICE could lead to loss of limb, or even sepsis/. He states that his sister of sepsis so he will watch closely for symptoms and come back if things get worse. Tdap booster was administered here and he was given oral Bactrim to treat infection since he refuses to be admitted for IV antibiotics. He is GCS of 15, alert and oriented x 4 and demonstrates good understanding and decision-making capability. I advised that he return immediately should he change his mind. He expressed understanding and agreement. Critical Care Critical Care Time Critical Care Time: Yes Attestation: On 12/07/24, the high probability of a clinically significant, sudden or life threatening deterioration of the following system(s) required my full and direct attention, intervention and personal management. The time I documented below is in addition to time spent performing reported procedures but includes the following listed in this critical care notation. Total Time Total Critical Care Time: 35
[2024-12-07] MEDS: TET/DIPHTH/PERT-ADULT 0.5ML SYRINGE 0.5 ML IM (16:48)
[2024-12-07] MEDS: SULFA/TRIMETHOPRIM 1 TABLET 1 EACH PO (16:48)
[2024-12-07 17:20] VITALS: BP 130/84; PULSE 84; RESP 20; TEMP 36.7; O2SAT 98
== END 2024-12-07 17:23 | disposition left against medical advice (07) ==
PROVIDERS: Emergency Provider Emergency Medicine
DX: L03.116 Cellulitis of left lower limb (principal); T65.891A Toxic effect of other specified substances, accidental (unintentional), initial encounter; S71.132A Puncture wound without foreign body, left thigh, initial encounter; M79.652 Pain in left thigh; W29.8XXA Contact with other powered hand tools and household machinery, initial encounter; Z23 Encounter for immunization
CPT/HCPCS: 90471; 90715; 99285